=== PATIENT | female | born 1990 | race Caucasian/White ===

== ENCOUNTER 2016-03-25 11:03 | Emergency (ER) | payer MEDICAID ==
[~2016-03-25] VITALS: Ht 157.5 cm; Wt 113.6 kg
[~2016-03-25 11:03] MED LIST: ATEN25 PO; SERT50TA12 PO; ZIPR20CA2 PO
[2016-03-25] MEDS ORDERED: DONNATAL/LIDOCAINE/MAALOX 55 ML BOTTLE PO ONE (12:00)
[2016-03-25 12:13] LABS: BASOPHILS % (AUTO) 0.4 % (0.0-2.0); EOSINOPHILS % (AUTO) 1.2 % (1.0-6.0); HEMATOCRIT 28.2 % (36-46); HEMOGLOBIN 8.6 g/dL (12.0-16.0); LYMPHOCYTES # (AUTO) 3.4 K/uL (1.0-4.8); LYMPHOCYTES % (AUTO) 30.9 % (22.0-44.0); MEAN CORPUSCULAR HEMOGLOBIN 20.6 pg (26.0-34.0); MEAN CORPUSCULAR HGB CONC 30.5 G/dL (31.0-37.0); MEAN CORPUSCULAR VOLUME 68 fL (80-100); MONOCYTES # (AUTO) 0.7 K/uL (0.1-1.0); MONOCYTES % (AUTO) 6.4 % (2.0-9.0); NEUTROPHILS # (AUTO) 6.7 K/uL (1.8-7.7); NEUTROPHILS % (AUTO) 61.1 % (40.0-70.0); PLATELET COUNT (AUTO) 228 K/uL (150-450); RED BLOOD CELL COUNT(AUTO) 4.17 MIL/uL (4.00-5.20); RED CELL DISTRIBUTION WIDTH 19.6 % (11.5-14.5)
[2016-03-25 12:24] LABS: ANION GAP 9 mmol/L (8-16); CALCIUM, TOTAL 8.3 mg/dL (8.8-10.5); CARBON DIOXIDE 26 mmol/L (22-29); CHLORIDE 102 mmol/L (98-107); GLOMERULAR FILTR. RATE CALC > 60 mL/min (>60); POTASSIUM 3.9 mmol/L (3.5-5.1); SODIUM SERUM 137 mmol/L (136-145); UREA NITROGEN, BLOOD 8 mg/dL (7-18)
[2016-03-25 12:29] LABS: ALANINE AMINOTRANSFERASE 26 U/L (12-78); ALBUMIN 3.4 g/dL (3.4-5.0); ASPARTATE AMINOTRANSFERASE 13 U/L (15-37); BILIRUBIN,TOTAL 0.2 mg/dL (0.1-1.0); TOTAL PROTEIN, SERUM 7.6 g/dL (6.4-8.2)
[2016-03-25 12:42] LABS: RBC MORPHOLOGY COMMENT ABNORMAL RBC MORPH
[2016-03-25] MEDS ORDERED: OxyCODONE HCL/ACETAMINOPHEN 5-325 MG TABLET PO PRN (13:30)
[2016-03-25] MEDS ORDERED: ACETAMINOPHEN 325 MG TABLET PO PRN (13:30)
[2016-03-25] MEDS ORDERED: ZOLPIDEM TARTRATE 5 MG TABLET PO PRN (13:30)
[2016-03-25 13:54] VITALS: BP 126/96
[2016-03-25] MEDS ORDERED: PEG 3350/NA SULF,BICARB,CL/KCL 4000 ML SOLUTION PO ONE (16:00)
[2016-03-26] MEDS ORDERED: ZIPRASIDONE HCL 20 MG CAPSULE PO SCH (08:00)
[2016-03-26] MEDS ORDERED: PANTOPRAZOLE SODIUM 40 MG DR TABLET PO SCH (09:00)
[2016-03-26] MEDS ORDERED: SERTRALINE HCL 50 MG TABLET PO SCH (09:00)
== END 2016-03-25 14:28 | disposition left against medical advice (07) ==
LOC: EMS 11:05 → 6N 13:34 → UNDOADMIN 13:34 → EMS 14:28
DX: K62.5 Hemorrhage of anus and rectum (principal); D64.9 Anemia, unspecified; I10 Essential (primary) hypertension; J45.909 Unspecified asthma, uncomplicated; F17.210 Nicotine dependence, cigarettes, uncomplicated
CPT/HCPCS: 36415; 80053; 83690; 84703; 85025; 99284; Z7610

== ENCOUNTER 2016-03-31 16:48 | Emergency (ER) | payer MEDICAID ==
[~2016-03-31] VITALS: Ht 167.6 cm; Wt 104.5 kg
[~2016-03-31 16:48] MED LIST changes: -ATEN25 PO
[2016-03-31 18:02] LABS: BASOPHILS % (AUTO) 0.4 % (0.0-2.0); EOSINOPHILS % (AUTO) 0.9 % (1.0-6.0); HEMATOCRIT 28.2 % (36-46); HEMOGLOBIN 8.6 g/dL (12.0-16.0); LYMPHOCYTES # (AUTO) 2.8 K/uL (1.0-4.8); LYMPHOCYTES % (AUTO) 24.6 % (22.0-44.0); MEAN CORPUSCULAR HEMOGLOBIN 20.7 pg (26.0-34.0); MEAN CORPUSCULAR HGB CONC 30.4 G/dL (31.0-37.0); MEAN CORPUSCULAR VOLUME 68 fL (80-100); MONOCYTES # (AUTO) 0.8 K/uL (0.1-1.0); MONOCYTES % (AUTO) 7.5 % (2.0-9.0); NEUTROPHILS # (AUTO) 7.6 K/uL (1.8-7.7); NEUTROPHILS % (AUTO) 66.6 % (40.0-70.0); PLATELET COUNT (AUTO) 315 K/uL (150-450); RED BLOOD CELL COUNT(AUTO) 4.15 MIL/uL (4.00-5.20); WHITE BLOOD COUNT (AUTO) 11.3 K/uL (4.5-11.0)
[2016-03-31 18:11] LABS: ANION GAP 8 mmol/L (8-16); CALCIUM, TOTAL 8.7 mg/dL (8.8-10.5); CARBON DIOXIDE 28 mmol/L (22-29); CHLORIDE 100 mmol/L (98-107); CREATININE 0.78 mg/dL (0.60-1.30); GLOMERULAR FILTR. RATE CALC > 60 mL/min (>60); SODIUM SERUM 136 mmol/L (136-145); UREA NITROGEN, BLOOD 12 mg/dL (7-18)
[2016-03-31 18:15] LABS: PROTHROMBIN TIME 10.2 SEC (9.4-11.6)
[2016-03-31 18:18] LABS: ALANINE AMINOTRANSFERASE 28 U/L (12-78); ALBUMIN 3.5 g/dL (3.4-5.0); ASPARTATE AMINOTRANSFERASE 12 U/L (15-37); BILIRUBIN,TOTAL 0.1 mg/dL (0.1-1.0); TOTAL PROTEIN, SERUM 7.9 g/dL (6.4-8.2)
[2016-03-31 18:26] LABS: APPEARANCE,URINE CLEAR (CLEAR); GLUCOSE, URINE (UA) NEGATIVE (NEGATIVE); KETONES,URINE NEGATIVE (NEGATIVE); LEUKOCYTE ESTERASE ,URINE SMALL (NEGATIVE); OCCULT BLOOD,URINE NEGATIVE (NEGATIVE); PH,URINE 6.5 (5.0-8.0); PROTEIN,URINE NEGATIVE (NEGATIVE)
[2016-03-31 18:32] LABS: ADD UA MICROSCOPIC YES
[2016-03-31 18:35] LABS: RBC MORPHOLOGY COMMENT ABNORMAL RBC MORPH
[2016-03-31 18:57] LABS: RBC,URINE 0-2 /HPF (0-2); SQUAMOUS EPITHELIAL CELL,UR Moderate /LPF (None Seen)
[2016-03-31 20:10] VITALS: BP 124/62
== END 2016-03-31 20:14 | disposition home or self-care (01) ==
LOC: EMS 16:50
DX: K62.5 Hemorrhage of anus and rectum (principal); D64.9 Anemia, unspecified; J45.909 Unspecified asthma, uncomplicated; I10 Essential (primary) hypertension; F17.210 Nicotine dependence, cigarettes, uncomplicated
CPT/HCPCS: 87086; 99284